=== PATIENT | male | born 1960 | race Caucasian/White ===

== ENCOUNTER 2024-01-14 03:01 | Outpatient (CLI) | payer BC, SELFPAY ==
[2024-01-14 09:59] LABS: Abs Immature Grans 0.04 10^3/uL (0.0-0.06); Absolute Basophil Count 0.06 10^3/uL (0.0-0.2); Absolute Eosinophil Count 0.24 10^3/uL (0.0-0.7); Absolute Lymphocyte Count 1.61 10^3/uL (1.2-3.4); Absolute Monocyte Count 0.94 10^3/uL (0.1-0.8); Absolute Neutrophil Count 7.12 10^3/uL (1.2-6.7); Basophils % 0.6 %; Eosinophils % 2.4 %; HCT 30.2 % (40.0-50.0); HGB 9.7 g/dL (13.5-17.5); Immature Grans % 0.4 %; Lymphocytes % 16.1 %; MCH 29.4 pg (27.0-33.0); MCHC 32.1 % (32.0-36.0); MCV 92 fL (80-95); MPV 8.5 fL (8.0-11.0); Monocytes % 9.4 %; Neutrophils % 71.1 %; Platelet Count 316 10^3/uL (130-400); RDW 13.2 % (11.8-14.1); RDW-SD 44.4 fL; WBC 10.01 10^3/uL (4.4-10.8)
[2024-01-14 10:19] LABS: ALT 20 U/L (16-63); AST 19 U/L (15-37); Albumin 3.8 g/dL (3.4-5.0); Alkaline Phosphatase 97 U/L (46-116); Anion Gap 10.7 mmol/L (3-11); BUN 19 mg/dL (7-18); Bilirubin, Total 0.32 mg/dL (0.2-1.0); CO2 23.3 mmol/L (21.0-32.0); Calcium 9.5 mg/dL (8.5-10.1); Chloride 105 mmol/L (98-107); Glucose 88 mg/dL (74-106); Magnesium 2.2 mg/dL (1.8-2.4); Sodium 139 mmol/L (136-145)
== END 2024-01-14 03:02 | disposition home or self-care (01) ==
LOC: LBO 03:02
PROVIDERS: PCP Family Medicine; Visit Provider Internal Medicine Medical Oncology
DX: C34.91 Malignant neoplasm of unspecified part of right bronchus or lung (principal)
CPT/HCPCS: 36415; 80053; 83735; 85025

== ENCOUNTER 2024-01-21 02:57 | Outpatient (CLI) | payer BC, SELFPAY ==
[2024-01-21 11:03] LABS: Abs Immature Grans 0.06 10^3/uL (0.0-0.06); Absolute Basophil Count 0.05 10^3/uL (0.0-0.2); Absolute Eosinophil Count 0.12 10^3/uL (0.0-0.7); Absolute Lymphocyte Count 1.12 10^3/uL (1.2-3.4); Absolute Monocyte Count 0.45 10^3/uL (0.1-0.8); Basophils % 0.8 %; Eosinophils % 1.9 %; HCT 27.9 % (40.0-50.0); HGB 9.1 g/dL (13.5-17.5); Lymphocytes % 17.8 %; MCH 29.5 pg (27.0-33.0); MCHC 32.6 % (32.0-36.0); MCV 91 fL (80-95); MPV 8.6 fL (8.0-11.0); Monocytes % 7.1 %; Neutrophils % 71.4 %; Platelet Count 291 10^3/uL (130-400); RBC 3.08 10^6/uL (4.36-5.78); RDW-SD 42.5 fL
[2024-01-21 11:25] LABS: ALT 25 U/L (16-63); AST 22 U/L (15-37); Albumin 3.5 g/dL (3.4-5.0); Alkaline Phosphatase 91 U/L (46-116); BUN 23 mg/dL (7-18); Bilirubin, Total 0.45 mg/dL (0.2-1.0); Calcium 9.1 mg/dL (8.5-10.1); Chloride 100 mmol/L (98-107); Glucose 99 mg/dL (74-106); Sodium 133 mmol/L (136-145); Total Protein 7.5 g/dL (6.4-8.2)
== END 2024-01-21 02:58 | disposition home or self-care (01) ==
LOC: LBO 02:59
PROVIDERS: PCP Family Medicine; Visit Provider Internal Medicine Medical Oncology
DX: C34.91 Malignant neoplasm of unspecified part of right bronchus or lung (principal)
CPT/HCPCS: 36415; 80053; 83735; 85025

== ENCOUNTER 2024-01-28 02:27 | Outpatient (CLI) | payer BC, SELFPAY ==
[2024-01-28 08:07] LABS: Abs Immature Grans 0.04 10^3/uL (0.0-0.06); Absolute Basophil Count 0.04 10^3/uL (0.0-0.2); Absolute Eosinophil Count 0.07 10^3/uL (0.0-0.7); Absolute Monocyte Count 0.42 10^3/uL (0.1-0.8); Absolute Neutrophil Count 3.73 10^3/uL (1.2-6.7); Basophils % 0.8 %; Eosinophils % 1.4 %; HGB 8.7 g/dL (13.5-17.5); Immature Grans % 0.8 %; MCHC 32.2 % (32.0-36.0); MCV 93 fL (80-95); MPV 8.5 fL (8.0-11.0); Monocytes % 8.4 %; Neutrophils % 74.6 %; Platelet Count 294 10^3/uL (130-400); RDW 13.3 % (11.8-14.1); RDW-SD 44.8 fL
[2024-01-28 08:24] LABS: Diff Comment Diff Reviewed; RBC Morphology Normal
[2024-01-28 08:49] LABS: ALT 22 U/L (16-63); AST 19 U/L (15-37); Albumin 3.4 g/dL (3.4-5.0); Alkaline Phosphatase 90 U/L (46-116); Anion Gap 10.2 mmol/L (3-11); BUN 22 mg/dL (7-18); Bilirubin, Total 0.31 mg/dL (0.2-1.0); CO2 21.8 mmol/L (21.0-32.0); CREATININE 0.9 mg/dL (0.70-1.30); Calcium 9.3 mg/dL (8.5-10.1); Chloride 102 mmol/L (98-107); Estimated GFR 96.57 (mL/min/1.73m2); Ferritin 289 ng/mL (26-388); Folate 10.4 ng/mL (8.6-20.0); Glucose 101 mg/dL (74-106); Magnesium 2.1 mg/dL (1.8-2.4); Potassium 5.3 mmol/L (3.5-5.1); Sodium 134 mmol/L (136-145); Total Protein 7.6 g/dL (6.4-8.2); Vitamin B12 623 pg/mL (193-986)
[2024-01-28 08:54] LABS: Iron 37 ug/dL (65-175); Total Iron Binding Capacity 321 ug/dL (250-450); Transferrin Sat 12 % (20-55)
== END 2024-01-28 02:28 | disposition home or self-care (01) ==
LOC: LBO 02:27
PROVIDERS: PCP Family Medicine; Visit Provider Internal Medicine Medical Oncology
DX: D64.9 Anemia, unspecified (principal); C34.91 Malignant neoplasm of unspecified part of right bronchus or lung
CPT/HCPCS: 36415; 80053; 82607; 82728; 82746; 83540; 83550; 83735; 85025

== ENCOUNTER 2024-02-04 04:39 | Outpatient (CLI) | payer BC, SELFPAY ==
[2024-02-04 08:10] LABS: Abs Immature Grans 0.04 10^3/uL (0.0-0.06); Absolute Basophil Count 0.04 10^3/uL (0.0-0.2); Absolute Eosinophil Count 0.02 10^3/uL (0.0-0.7); Absolute Lymphocyte Count 0.51 10^3/uL (1.2-3.4); Eosinophils % 0.5 %; HCT 24.7 % (40.0-50.0); HGB 8.1 g/dL (13.5-17.5); Lymphocytes % 13.4 %; MCH 29.9 pg (27.0-33.0); MCHC 32.8 % (32.0-36.0); MCV 91 fL (80-95); MPV 8.3 fL (8.0-11.0); Monocytes % 7.9 %; Neutrophils % 76.2 %; Platelet Count 265 10^3/uL (130-400); RBC 2.71 10^6/uL (4.36-5.78); WBC 3.81 10^3/uL (4.4-10.8)
[2024-02-04 08:27] LABS: ALT 19 U/L (16-63); AST 19 U/L (15-37); Albumin 3.4 g/dL (3.4-5.0); Alkaline Phosphatase 90 U/L (46-116); Anion Gap 10.7 mmol/L (3-11); BUN 25 mg/dL (7-18); Bilirubin, Total 0.31 mg/dL (0.2-1.0); CO2 21.3 mmol/L (21.0-32.0); CREATININE 0.9 mg/dL (0.70-1.30); Calcium 9.3 mg/dL (8.5-10.1); Chloride 105 mmol/L (98-107); Estimated GFR 96.57 (mL/min/1.73m2); Glucose 100 mg/dL (74-106); Magnesium 1.9 mg/dL (1.8-2.4); Potassium 4.9 mmol/L (3.5-5.1); Sodium 137 mmol/L (136-145); Total Protein 7.4 g/dL (6.4-8.2)
== END 2024-02-04 04:40 | disposition home or self-care (01) ==
LOC: LBO 04:39
PROVIDERS: PCP Family Medicine; Visit Provider Internal Medicine Medical Oncology
DX: C34.91 Malignant neoplasm of unspecified part of right bronchus or lung (principal)
CPT/HCPCS: 36415; 80053; 83735; 85025

== ENCOUNTER 2024-02-11 02:13 | Outpatient (CLI) | payer BC, SELFPAY ==
[2024-02-11 08:04] LABS: Abs Immature Grans 0.03 10^3/uL (0.0-0.06); Absolute Basophil Count 0.02 10^3/uL (0.0-0.2); Absolute Eosinophil Count 0.05 10^3/uL (0.0-0.7); Absolute Monocyte Count 0.38 10^3/uL (0.1-0.8); Absolute Neutrophil Count 2.11 10^3/uL (1.2-6.7); Basophils % 0.6 %; Eosinophils % 1.6 %; HCT 24.4 % (40.0-50.0); HGB 8.1 g/dL (13.5-17.5); Immature Grans % 0.9 %; Lymphocytes % 18.8 %; MCH 29.7 pg (27.0-33.0); MCHC 33.2 % (32.0-36.0); MCV 89 fL (80-95); MPV 8.6 fL (8.0-11.0); Monocytes % 11.9 %; Neutrophils % 66.2 %; Platelet Count 156 10^3/uL (130-400); RBC 2.73 10^6/uL (4.36-5.78); RDW 14.9 % (11.8-14.1); RDW-SD 47.3 fL; WBC 3.19 10^3/uL (4.4-10.8)
[2024-02-11 08:17] LABS: ALT 27 U/L (16-63); AST 29 U/L (15-37); Albumin 3.4 g/dL (3.4-5.0); Alkaline Phosphatase 94 U/L (46-116); Anion Gap 11.3 mmol/L (3-11); BUN 20 mg/dL (7-18); Bilirubin, Total 0.34 mg/dL (0.2-1.0); CO2 22.7 mmol/L (21.0-32.0); CREATININE 1.1 mg/dL (0.70-1.30); Calcium 9.2 mg/dL (8.5-10.1); Chloride 100 mmol/L (98-107); Glucose 130 mg/dL (74-106); Sodium 134 mmol/L (136-145); Total Protein 7.7 g/dL (6.4-8.2)
== END 2024-02-11 02:14 | disposition home or self-care (01) ==
PROVIDERS: PCP Family Medicine; Visit Provider Internal Medicine Medical Oncology
DX: C34.91 Malignant neoplasm of unspecified part of right bronchus or lung (principal)
CPT/HCPCS: 36415; 80053; 83735; 85025

== ENCOUNTER 2024-02-13 02:13 | Outpatient (RCR) | payer BC, SELFPAY ==
[2024-02-13 11:02] VITALS: BP 93/60; PULSE 93; RESP 16; TEMP 36; O2SAT 100
[2024-02-13 11:17] VITALS: BP 106/68; PULSE 95; RESP 16; TEMP 36.8; O2SAT 100
[2024-02-13 11:30] VITALS: BP 103/65; PULSE 85; RESP 16; TEMP 36.8; O2SAT 99
[2024-02-13 12:00] VITALS: BP 126/72; PULSE 91; RESP 16; TEMP 36.6; O2SAT 99
[2024-02-13 12:50] VITALS: BP 108/70; PULSE 98; RESP 16; TEMP 36.6; O2SAT 100
== END 2024-03-04 23:59 | disposition home or self-care (01) ==
LOC: INF 02:13
PROVIDERS: PCP Family Medicine; Visit Provider Internal Medicine Medical Oncology
DX: D64.9 Anemia, unspecified (principal)
CPT/HCPCS: 36415; 36430; 86850; 86900; 86901; 86920; P9016

== ENCOUNTER 2024-02-18 02:32 | Outpatient (CLI) | payer BC, SELFPAY ==
[2024-02-18 08:07] LABS: Abs Immature Grans 0.04 10^3/uL (0.0-0.06); Absolute Basophil Count 0.02 10^3/uL (0.0-0.2); Absolute Eosinophil Count 0.02 10^3/uL (0.0-0.7); Absolute Lymphocyte Count 0.38 10^3/uL (1.2-3.4); Absolute Monocyte Count 0.23 10^3/uL (0.1-0.8); Absolute Neutrophil Count 2.35 10^3/uL (1.2-6.7); Basophils % 0.7 %; Eosinophils % 0.7 %; HCT 21.3 % (40.0-50.0); HGB 7.2 g/dL (13.5-17.5); Immature Grans % 1.3 %; Lymphocytes % 12.5 %; MCH 30.8 pg (27.0-33.0); MCHC 33.8 % (32.0-36.0); MCV 91 fL (80-95); MPV 9.1 fL (8.0-11.0); Monocytes % 7.6 %; Neutrophils % 77.2 %; Platelet Count 166 10^3/uL (130-400); RBC 2.34 10^6/uL (4.36-5.78); RDW 15.3 % (11.8-14.1); RDW-SD 49.1 fL; WBC 3.04 10^3/uL (4.4-10.8)
[2024-02-18 08:22] LABS: ALT 18 U/L (16-63); AST 20 U/L (15-37); Albumin 3.1 g/dL (3.4-5.0); Alkaline Phosphatase 98 U/L (46-116); Anion Gap 11.7 mmol/L (3-11); BUN 12 mg/dL (7-18); Bilirubin, Total 0.34 mg/dL (0.2-1.0); CO2 22.3 mmol/L (21.0-32.0); Calcium 9.2 mg/dL (8.5-10.1); Chloride 103 mmol/L (98-107); Glucose 103 mg/dL (74-106); Magnesium 1.8 mg/dL (1.8-2.4); Potassium 4.2 mmol/L (3.5-5.1); Sodium 137 mmol/L (136-145); Total Protein 7.2 g/dL (6.4-8.2)
== END 2024-02-18 02:33 | disposition home or self-care (01) ==
LOC: LBO 02:32
PROVIDERS: PCP Family Medicine; Visit Provider Internal Medicine Medical Oncology
DX: C34.91 Malignant neoplasm of unspecified part of right bronchus or lung (principal)
CPT/HCPCS: 36415; 80053; 83735; 85025

== ENCOUNTER 2024-02-26 13:47 | Outpatient (CLI) | payer BC, SELFPAY ==
[2024-02-26 08:28] LABS: Abs Immature Grans 0.02 10^3/uL (0.0-0.06); Absolute Basophil Count 0.01 10^3/uL (0.0-0.2); Absolute Eosinophil Count 0.01 10^3/uL (0.0-0.7); Absolute Lymphocyte Count 0.32 10^3/uL (1.2-3.4); Absolute Monocyte Count 0.27 10^3/uL (0.1-0.8); Absolute Neutrophil Count 1.42 10^3/uL (1.2-6.7); Basophils % 0.5 %; Eosinophils % 0.5 %; HCT 21.8 % (40.0-50.0); HGB 7.2 g/dL (13.5-17.5); Lymphocytes % 15.6 %; MCH 30.8 pg (27.0-33.0); MCV 93 fL (80-95); Monocytes % 13.2 %; Neutrophils % 69.2 %; Platelet Count 214 10^3/uL (130-400); RBC 2.34 10^6/uL (4.36-5.78); RDW 16.3 % (11.8-14.1); RDW-SD 51.5 fL; WBC 2.05 10^3/uL (4.4-10.8)
[2024-02-26 08:44] LABS: ALT 15 U/L (16-63); AST 19 U/L (15-37); Albumin 3.1 g/dL (3.4-5.0); Alkaline Phosphatase 104 U/L (46-116); Anion Gap 11.6 mmol/L (3-11); BUN 10 mg/dL (7-18); Bilirubin, Total 0.41 mg/dL (0.2-1.0); CO2 24.4 mmol/L (21.0-32.0); Calcium 9.2 mg/dL (8.5-10.1); Chloride 102 mmol/L (98-107); Glucose 104 mg/dL (74-106); Magnesium 1.9 mg/dL (1.8-2.4); Potassium 3.8 mmol/L (3.5-5.1); Sodium 138 mmol/L (136-145); Total Protein 7.4 g/dL (6.4-8.2)
== END 2024-02-26 13:48 | disposition home or self-care (01) ==
LOC: LBO 13:48
PROVIDERS: PCP Family Medicine; Visit Provider Internal Medicine Medical Oncology
DX: C34.91 Malignant neoplasm of unspecified part of right bronchus or lung (principal)
CPT/HCPCS: 36415; 80053; 83735; 85025

== ENCOUNTER 2024-03-10 11:05 | Outpatient (CLI) | payer BC, SELFPAY ==
[2024-03-10 09:49] LABS: Abs Immature Grans 0.05 10^3/uL (0.0-0.06); Absolute Basophil Count 0.06 10^3/uL (0.0-0.2); Absolute Eosinophil Count 0.15 10^3/uL (0.0-0.7); Absolute Lymphocyte Count 0.74 10^3/uL (1.2-3.4); Absolute Neutrophil Count 5.07 10^3/uL (1.2-6.7); Basophils % 0.8 %; Eosinophils % 2.1 %; HCT 27.9 % (40.0-50.0); HGB 8.7 g/dL (13.5-17.5); Immature Grans % 0.7 %; Lymphocytes % 10.5 %; MCH 29.5 pg (27.0-33.0); MCHC 31.2 % (32.0-36.0); MCV 95 fL (80-95); MPV 8.5 fL (8.0-11.0); Monocytes % 14.1 %; Neutrophils % 71.8 %; Platelet Count 322 10^3/uL (130-400); RBC 2.95 10^6/uL (4.36-5.78); RDW 17.8 % (11.8-14.1); RDW-SD 61.8 fL; WBC 7.07 10^3/uL (4.4-10.8)
[2024-03-10 10:05] LABS: ALT 16 U/L (16-63); AST 23 U/L (15-37); Albumin 3.6 g/dL (3.4-5.0); Alkaline Phosphatase 128 U/L (46-116); Anion Gap 9.6 mmol/L (3-11); BUN 9 mg/dL (7-18); CO2 24.4 mmol/L (21.0-32.0); CREATININE 1.1 mg/dL (0.70-1.30); Calcium 10.1 mg/dL (8.5-10.1); Chloride 104 mmol/L (98-107); Glucose 116 mg/dL (74-106); Magnesium 2.1 mg/dL (1.8-2.4); Potassium 4.2 mmol/L (3.5-5.1); Sodium 138 mmol/L (136-145); Total Protein 8.3 g/dL (6.4-8.2)
== END 2024-03-10 11:06 | disposition home or self-care (01) ==
LOC: LBO 11:05
PROVIDERS: PCP Family Medicine; Visit Provider Internal Medicine Medical Oncology
DX: C34.91 Malignant neoplasm of unspecified part of right bronchus or lung (principal)
CPT/HCPCS: 36415; 80053; 83735; 85025

== ENCOUNTER 2024-04-07 01:16 | Outpatient (CLI) | payer BC, SELFPAY ==
[2024-04-07 12:01] LABS: Abs Immature Grans 0.03 10^3/uL (0.0-0.06); Absolute Basophil Count 0.05 10^3/uL (0.0-0.2); Absolute Lymphocyte Count 0.69 10^3/uL (1.2-3.4); Absolute Monocyte Count 0.77 10^3/uL (0.1-0.8); Absolute Neutrophil Count 5.28 10^3/uL (1.2-6.7); Basophils % 0.7 %; Eosinophils % 5.5 %; HCT 33.2 % (40.0-50.0); Immature Grans % 0.4 %; Lymphocytes % 9.6 %; MCH 27.3 pg (27.0-33.0); MCHC 30.1 % (32.0-36.0); MCV 91 fL (80-95); MPV 8.6 fL (8.0-11.0); Monocytes % 10.7 %; Neutrophils % 73.1 %; Platelet Count 306 10^3/uL (130-400); RBC 3.66 10^6/uL (4.36-5.78); RDW 16.2 % (11.8-14.1); RDW-SD 54.7 fL; WBC 7.22 10^3/uL (4.4-10.8)
[2024-04-07 12:25] LABS: ALT 22 U/L (16-63); AST 21 U/L (15-37); Albumin 3.7 g/dL (3.4-5.0); Alkaline Phosphatase 104 U/L (46-116); Anion Gap 8.2 mmol/L (3-11); BUN 17 mg/dL (7-18); Bilirubin, Total 0.21 mg/dL (0.2-1.0); CO2 25.8 mmol/L (21.0-32.0); Calcium 9.5 mg/dL (8.5-10.1); Chloride 107 mmol/L (98-107); FREE T4 0.88 ng/dL (0.76-1.46); Glucose 79 mg/dL (74-106); Magnesium 1.9 mg/dL (1.8-2.4); Potassium 4.1 mmol/L (3.5-5.1); Sodium 141 mmol/L (136-145); TSH 1.75 uIU/mL (0.36-3.74); Total Protein 7.8 g/dL (6.4-8.2)
== END 2024-04-07 01:17 | disposition home or self-care (01) ==
PROVIDERS: PCP Family Medicine; Visit Provider Internal Medicine Medical Oncology
DX: C34.91 Malignant neoplasm of unspecified part of right bronchus or lung (principal); Z79.899 Other long term (current) drug therapy
CPT/HCPCS: 36415; 80053; 83735; 84439; 84443; 85025

== ENCOUNTER 2024-05-06 12:16 | Outpatient (CLI) | payer BC, SELFPAY ==
[2024-05-06 10:22] LABS: Abs Immature Grans 0.03 10^3/uL (0.0-0.06); Absolute Basophil Count 0.04 10^3/uL (0.0-0.2); Absolute Eosinophil Count 0.25 10^3/uL (0.0-0.7); Absolute Lymphocyte Count 0.83 10^3/uL (1.2-3.4); Absolute Monocyte Count 0.94 10^3/uL (0.1-0.8); Absolute Neutrophil Count 4.42 10^3/uL (1.2-6.7); Basophils % 0.6 %; Eosinophils % 3.8 %; HCT 40.2 % (40.0-50.0); HGB 12.3 g/dL (13.5-17.5); Immature Grans % 0.5 %; Lymphocytes % 12.7 %; MCH 27.2 pg (27.0-33.0); MCHC 30.6 % (32.0-36.0); MCV 89 fL (80-95); MPV 8.4 fL (8.0-11.0); Monocytes % 14.4 %; Platelet Count 266 10^3/uL (130-400); RBC 4.53 10^6/uL (4.36-5.78); RDW 15.4 % (11.8-14.1); WBC 6.51 10^3/uL (4.4-10.8)
[2024-05-06 10:59] LABS: ALT 26 U/L (16-63); AST 25 U/L (15-37); Albumin 4.2 g/dL (3.4-5.0); Alkaline Phosphatase 104 U/L (46-116); Anion Gap 9.2 mmol/L (3-11); BUN 15 mg/dL (7-18); Bilirubin, Total 0.27 mg/dL (0.2-1.0); CO2 27.8 mmol/L (21.0-32.0); Calcium 10.1 mg/dL (8.5-10.1); Chloride 104 mmol/L (98-107); Glucose 76 mg/dL (74-106); Magnesium 2.2 mg/dL (1.8-2.4); Potassium 5.3 mmol/L (3.5-5.1); Sodium 141 mmol/L (136-145); TSH 1.32 uIU/mL (0.36-3.74); Total Protein 8.1 g/dL (6.4-8.2)
[2024-05-06 18:40] LABS: T4, Free 1.1 ng/dL (0.8-2.2)
== END 2024-05-06 12:17 | disposition home or self-care (01) ==
LOC: LBO 12:16
PROVIDERS: PCP Family Medicine; Visit Provider Internal Medicine Medical Oncology
DX: C34.91 Malignant neoplasm of unspecified part of right bronchus or lung (principal); Z79.899 Other long term (current) drug therapy
CPT/HCPCS: 36415; 80053; 83735; 84439; 84443; 85025

== ENCOUNTER 2024-06-02 01:43 | Outpatient (CLI) | payer BC, SELFPAY ==
[2024-06-02 09:41] LABS: Abs Immature Grans 0.01 10^3/uL (0.0-0.06); Absolute Basophil Count 0.04 10^3/uL (0.0-0.2); Absolute Eosinophil Count 0.23 10^3/uL (0.0-0.7); Absolute Monocyte Count 0.62 10^3/uL (0.1-0.8); Absolute Neutrophil Count 4.42 10^3/uL (1.2-6.7); Basophils % 0.6 %; Eosinophils % 3.7 %; HCT 39.5 % (40.0-50.0); HGB 12.5 g/dL (13.5-17.5); Immature Grans % 0.2 %; Lymphocytes % 14.5 %; MCH 27.4 pg (27.0-33.0); MCHC 31.6 % (32.0-36.0); MCV 87 fL (80-95); MPV 8.5 fL (8.0-11.0); Platelet Count 241 10^3/uL (130-400); RBC 4.56 10^6/uL (4.36-5.78); RDW-SD 47.7 fL; WBC 6.22 10^3/uL (4.4-10.8)
[2024-06-02 10:07] LABS: ALT 30 U/L (16-63); AST 25 U/L (15-37); Alkaline Phosphatase 97 U/L (46-116); BUN 18 mg/dL (7-18); Bilirubin, Total 0.3 mg/dL (0.2-1.0); CREATININE 0.9 mg/dL (0.70-1.30); Calcium 9.8 mg/dL (8.5-10.1); Chloride 103 mmol/L (98-107); Estimated GFR 96.57 (mL/min/1.73m2); FREE T4 1.11 ng/dL (0.76-1.46); Glucose 124 mg/dL (74-106); Potassium 4.4 mmol/L (3.5-5.1); Sodium 140 mmol/L (136-145); TSH 0.23 uIU/mL (0.36-3.74); Total Protein 7.9 g/dL (6.4-8.2)
== END 2024-06-02 01:44 | disposition home or self-care (01) ==
LOC: LBO 01:43
PROVIDERS: PCP Family Medicine; Visit Provider Internal Medicine Medical Oncology
DX: C34.91 Malignant neoplasm of unspecified part of right bronchus or lung (principal); Z79.899 Other long term (current) drug therapy
CPT/HCPCS: 36415; 80053; 83735; 84439; 84443; 85025

== ENCOUNTER 2024-06-30 00:34 | Outpatient (CLI) | payer BC, SELFPAY ==
[2024-06-30 08:21] LABS: Abs Immature Grans 0.02 10^3/uL (0.0-0.06); Absolute Basophil Count 0.05 10^3/uL (0.0-0.2); Absolute Eosinophil Count 0.31 10^3/uL (0.0-0.7); Absolute Lymphocyte Count 1.09 10^3/uL (1.2-3.4); Absolute Monocyte Count 0.87 10^3/uL (0.1-0.8); Absolute Neutrophil Count 4.36 10^3/uL (1.2-6.7); Basophils % 0.7 %; Eosinophils % 4.6 %; HCT 39.2 % (40.0-50.0); HGB 12.4 g/dL (13.5-17.5); Immature Grans % 0.3 %; Lymphocytes % 16.3 %; MCH 27.3 pg (27.0-33.0); MCHC 31.6 % (32.0-36.0); MCV 86 fL (80-95); MPV 8.8 fL (8.0-11.0); Neutrophils % 65.1 %; Platelet Count 249 10^3/uL (130-400); RBC 4.54 10^6/uL (4.36-5.78); RDW 14.9 % (11.8-14.1); RDW-SD 47.3 fL
[2024-06-30 08:45] LABS: ALT 27 U/L (16-63); AST 23 U/L (15-37); Albumin 3.9 g/dL (3.4-5.0); Alkaline Phosphatase 90 U/L (46-116); Anion Gap 9.2 mmol/L (3-11); BUN 19 mg/dL (7-18); Bilirubin, Total 0.3 mg/dL (0.2-1.0); CO2 26.8 mmol/L (21.0-32.0); Calcium 9.7 mg/dL (8.5-10.1); Chloride 104 mmol/L (98-107); Glucose 81 mg/dL (74-106); Potassium 4.4 mmol/L (3.5-5.1); Sodium 140 mmol/L (136-145); TSH 0.33 uIU/mL (0.36-3.74); Total Protein 7.7 g/dL (6.4-8.2)
== END 2024-06-30 00:35 | disposition home or self-care (01) ==
LOC: LBO 00:35
PROVIDERS: PCP Family Medicine; Visit Provider Internal Medicine Medical Oncology
DX: C34.91 Malignant neoplasm of unspecified part of right bronchus or lung (principal); Z79.899 Other long term (current) drug therapy
CPT/HCPCS: 36415; 80053; 83735; 84439; 84443; 85025

== ENCOUNTER 2024-07-29 10:42 | Outpatient (CLI) | payer BC, SELFPAY ==
[2024-07-29 09:56] LABS: Abs Immature Grans 0.03 10^3/uL (0.0-0.06); Absolute Basophil Count 0.05 10^3/uL (0.0-0.2); Absolute Eosinophil Count 0.43 10^3/uL (0.0-0.7); Absolute Lymphocyte Count 0.92 10^3/uL (1.2-3.4); Absolute Neutrophil Count 3.93 10^3/uL (1.2-6.7); Basophils % 0.8 %; Eosinophils % 7.1 %; HCT 37.4 % (40.0-50.0); HGB 12.2 g/dL (13.5-17.5); Immature Grans % 0.5 %; Lymphocytes % 15.2 %; MCH 27.8 pg (27.0-33.0); MCHC 32.6 % (32.0-36.0); MCV 85 fL (80-95); MPV 8.7 fL (8.0-11.0); Monocytes % 11.6 %; Neutrophils % 64.8 %; Platelet Count 254 10^3/uL (130-400); RBC 4.39 10^6/uL (4.36-5.78); RDW 14.7 % (11.8-14.1); RDW-SD 45.7 fL; WBC 6.06 10^3/uL (4.4-10.8)
[2024-07-29 10:27] LABS: ALT 23 U/L (16-63); AST 25 U/L (15-37); Albumin 4.1 g/dL (3.4-5.0); Alkaline Phosphatase 92 U/L (46-116); Anion Gap 6.6 mmol/L (3-11); BUN 16 mg/dL (7-18); Bilirubin, Total 0.3 mg/dL (0.2-1.0); CO2 27.4 mmol/L (21.0-32.0); CREATININE 0.9 mg/dL (0.70-1.30); Calcium 9.5 mg/dL (8.5-10.1); Chloride 104 mmol/L (98-107); Estimated GFR 96.57 (mL/min/1.73m2); FREE T4 0.79 ng/dL (0.76-1.46); Glucose 91 mg/dL (74-106); Potassium 4.4 mmol/L (3.5-5.1); Sodium 138 mmol/L (136-145); TSH 2.78 uIU/mL (0.36-3.74); Total Protein 7.8 g/dL (6.4-8.2)
== END 2024-07-29 10:43 | disposition home or self-care (01) ==
LOC: LBO 10:42
PROVIDERS: PCP Family Medicine; Visit Provider Internal Medicine Medical Oncology
DX: C34.91 Malignant neoplasm of unspecified part of right bronchus or lung (principal); Z79.899 Other long term (current) drug therapy
CPT/HCPCS: 36415; 80053; 83735; 84439; 84443; 85025

== ENCOUNTER 2024-08-25 10:39 | Outpatient (CLI) | payer BC, SELFPAY ==
[2024-08-25 08:13] LABS: Abs Immature Grans 0.02 10^3/uL (0.0-0.06); Absolute Basophil Count 0.03 10^3/uL (0.0-0.2); Absolute Eosinophil Count 0.22 10^3/uL (0.0-0.7); Absolute Lymphocyte Count 0.73 10^3/uL (1.2-3.4); Absolute Monocyte Count 0.63 10^3/uL (0.1-0.8); Absolute Neutrophil Count 4.12 10^3/uL (1.2-6.7); Basophils % 0.5 %; Eosinophils % 3.8 %; HCT 35.1 % (40.0-50.0); HGB 11.4 g/dL (13.5-17.5); Immature Grans % 0.3 %; Lymphocytes % 12.7 %; MCH 28.2 pg (27.0-33.0); MCHC 32.5 % (32.0-36.0); MCV 87 fL (80-95); MPV 8.5 fL (8.0-11.0); Neutrophils % 71.7 %; Platelet Count 230 10^3/uL (130-400); RBC 4.04 10^6/uL (4.36-5.78); RDW 13.8 % (11.8-14.1); RDW-SD 43.5 fL; WBC 5.75 10^3/uL (4.4-10.8)
[2024-08-25 08:29] LABS: ALT 25 U/L (16-63); AST 22 U/L (15-37); Albumin 3.8 g/dL (3.4-5.0); Alkaline Phosphatase 84 U/L (46-116); Anion Gap 10.6 mmol/L (3-11); BUN 20 mg/dL (7-18); Bilirubin, Total 0.3 mg/dL (0.2-1.0); CO2 25.4 mmol/L (21.0-32.0); CREATININE 0.8 mg/dL (0.70-1.30); Calcium 9.3 mg/dL (8.5-10.1); Chloride 105 mmol/L (98-107); Estimated GFR 100.06 (mL/min/1.73m2); Glucose 119 mg/dL (74-106); Potassium 4.6 mmol/L (3.5-5.1); Sodium 141 mmol/L (136-145); Total Protein 7.5 g/dL (6.4-8.2)
[2024-08-25 08:39] LABS: FREE T4 0.71 ng/dL (0.76-1.46); TSH 4.69 uIU/mL (0.36-3.74)
== END 2024-08-25 10:40 | disposition home or self-care (01) ==
LOC: LBO 10:40
PROVIDERS: Nurse Practitioner Family; PCP Family Medicine; Visit Provider Internal Medicine Medical Oncology
DX: C34.91 Malignant neoplasm of unspecified part of right bronchus or lung (principal); Z79.899 Other long term (current) drug therapy
CPT/HCPCS: 36415; 80053; 83735; 84439; 84443; 85025

== ENCOUNTER 2024-09-22 01:34 | Outpatient (CLI) | payer BC, SELFPAY ==
[2024-09-22 12:07] LABS: Abs Immature Grans 0.02 10^3/uL (0.0-0.06); HCT 37.1 % (40.0-50.0); HGB 12.3 g/dL (13.5-17.5); Immature Grans % 0.3 %; MCH 28.9 pg (27.0-33.0); MCHC 33.2 % (32.0-36.0); MCV 87 fL (80-95); MPV 8.6 fL (8.0-11.0); Platelet Count 249 10^3/uL (130-400); RBC 4.26 10^6/uL (4.36-5.78); RDW 13.2 % (11.8-14.1); RDW-SD 41.6 fL; WBC 6.09 10^3/uL (4.4-10.8)
[2024-09-22 12:20] LABS: ALT 24 U/L (16-63); AST 21 U/L (15-37); Albumin 4.1 g/dL (3.4-5.0); Alkaline Phosphatase 87 U/L (46-116); Anion Gap 7.1 mmol/L (3-11); BUN 13 mg/dL (7-18); Bilirubin, Total 0.3 mg/dL (0.2-1.0); CO2 28.9 mmol/L (21.0-32.0); Calcium 9.4 mg/dL (8.5-10.1); Chloride 102 mmol/L (98-107); Estimated GFR 100.06 (mL/min/1.73m2); Glucose 78 mg/dL (74-106); Magnesium 2.2 mg/dL (1.8-2.4); Potassium 4.0 mmol/L (3.5-5.1); Sodium 138 mmol/L (136-145); Total Protein 7.5 g/dL (6.4-8.2)
[2024-09-22 12:30] LABS: TSH 4.83 uIU/mL (0.36-3.74)
== END 2024-09-22 01:35 | disposition home or self-care (01) ==
LOC: LBO 01:35
PROVIDERS: Nurse Practitioner Family; PCP Family Medicine; Visit Provider Internal Medicine Medical Oncology
DX: C34.91 Malignant neoplasm of unspecified part of right bronchus or lung (principal); Z79.899 Other long term (current) drug therapy
CPT/HCPCS: 36415; 80053; 83735; 84439; 84443; 85025

== ENCOUNTER 2024-10-20 04:09 | Outpatient (CLI) | payer BC, SELFPAY ==
[2024-10-20 07:41] LABS: Abs Immature Grans 0.02 10^3/uL (0.0-0.06); HCT 39.3 % (40.0-50.0); HGB 12.7 g/dL (13.5-17.5); Immature Grans % 0.3 %; MCH 28.5 pg (27.0-33.0); MCHC 32.3 % (32.0-36.0); MCV 88 fL (80-95); MPV 8.5 fL (8.0-11.0); Platelet Count 270 10^3/uL (130-400); RBC 4.46 10^6/uL (4.36-5.78); RDW 13.2 % (11.8-14.1); RDW-SD 42.5 fL; WBC 6.96 10^3/uL (4.4-10.8)
[2024-10-20 07:57] LABS: ALT 23 U/L (16-63); AST 24 U/L (15-37); Albumin 4.2 g/dL (3.4-5.0); Alkaline Phosphatase 90 U/L (46-116); Anion Gap 8.8 mmol/L (3-11); BUN 16 mg/dL (7-18); Bilirubin, Total 0.4 mg/dL (0.2-1.0); CO2 26.2 mmol/L (21.0-32.0); Calcium 9.6 mg/dL (8.5-10.1); Chloride 104 mmol/L (98-107); Estimated GFR 75.90 (mL/min/1.73m2); Glucose 141 mg/dL (74-106); Magnesium 2.1 mg/dL (1.8-2.4); Potassium 4.5 mmol/L (3.5-5.1); Sodium 139 mmol/L (136-145); Total Protein 7.9 g/dL (6.4-8.2)
[2024-10-20 10:01] LABS: TSH 16.19 uIU/mL (0.36-3.74)
== END 2024-10-20 04:10 | disposition home or self-care (01) ==
PROVIDERS: Internal Medicine Medical Oncology; PCP Family Medicine; Visit Provider Nurse Practitioner Family
DX: C34.91 Malignant neoplasm of unspecified part of right bronchus or lung (principal); Z79.899 Other long term (current) drug therapy
CPT/HCPCS: 36415; 80053; 83735; 84439; 84443; 85025

== ENCOUNTER 2024-11-17 01:50 | Outpatient (CLI) | payer BC, SELFPAY ==
[2024-11-17 09:46] LABS: Abs Immature Grans 0.02 10^3/uL (0.0-0.06); HCT 37.7 % (40.0-50.0); HGB 12.4 g/dL (13.5-17.5); Immature Grans % 0.3 %; MCH 29.3 pg (27.0-33.0); MCHC 32.9 % (32.0-36.0); MCV 89 fL (80-95); MPV 8.6 fL (8.0-11.0); Platelet Count 263 10^3/uL (130-400); RBC 4.23 10^6/uL (4.36-5.78); RDW 13.6 % (11.8-14.1); RDW-SD 44.4 fL; WBC 6.62 10^3/uL (4.4-10.8)
[2024-11-17 10:25] LABS: ALT 25 U/L (16-63); AST 27 U/L (15-37); Albumin 4.2 g/dL (3.4-5.0); Alkaline Phosphatase 89 U/L (46-116); Anion Gap 8.6 mmol/L (3-11); BUN 15 mg/dL (7-18); Bilirubin, Total 0.4 mg/dL (0.2-1.0); CO2 25.4 mmol/L (21.0-32.0); Calcium 9.7 mg/dL (8.5-10.1); Chloride 104 mmol/L (98-107); Estimated GFR 85.10 (mL/min/1.73m2); Glucose 111 mg/dL (74-106); Magnesium 2.1 mg/dL (1.8-2.4); Potassium 5.1 mmol/L (3.5-5.1); Sodium 138 mmol/L (136-145); TSH 41.15 uIU/mL (0.36-3.74); Total Protein 7.8 g/dL (6.4-8.2)
== END 2024-11-17 01:51 | disposition home or self-care (01) ==
LOC: LBO 01:51
PROVIDERS: PCP Family Medicine; Visit Provider Internal Medicine Medical Oncology
DX: C34.91 Malignant neoplasm of unspecified part of right bronchus or lung (principal); Z79.899 Other long term (current) drug therapy
CPT/HCPCS: 36415; 80053; 83735; 84439; 84443; 85025

== ENCOUNTER 2024-12-15 03:23 | Outpatient (CLI) | payer BC, SELFPAY ==
[2024-12-15 07:51] LABS: Abs Immature Grans 0.02 10^3/uL (0.0-0.06); HCT 37.0 % (40.0-50.0); HGB 12.1 g/dL (13.5-17.5); Immature Grans % 0.3 %; MCH 29.1 pg (27.0-33.0); MCHC 32.7 % (32.0-36.0); MCV 89 fL (80-95); MPV 8.7 fL (8.0-11.0); Platelet Count 225 10^3/uL (130-400); RBC 4.16 10^6/uL (4.36-5.78); RDW 13.5 % (11.8-14.1); RDW-SD 44.1 fL; WBC 6.28 10^3/uL (4.4-10.8)
[2024-12-15 08:13] LABS: ALT 24 U/L (16-63); AST 27 U/L (15-37); Albumin 4.1 g/dL (3.4-5.0); Alkaline Phosphatase 91 U/L (46-116); Anion Gap 9.4 mmol/L (3-11); BUN 12 mg/dL (7-18); Bilirubin, Total 0.4 mg/dL (0.2-1.0); CO2 26.6 mmol/L (21.0-32.0); Calcium 9.2 mg/dL (8.5-10.1); Chloride 104 mmol/L (98-107); Estimated GFR 100.06 (mL/min/1.73m2); Glucose 103 mg/dL (74-106); Magnesium 2.1 mg/dL (1.8-2.4); Potassium 4.0 mmol/L (3.5-5.1); Sodium 140 mmol/L (136-145); TSH 36.10 uIU/mL (0.36-3.74); Total Protein 7.7 g/dL (6.4-8.2)
== END 2024-12-15 03:24 | disposition home or self-care (01) ==
LOC: LBO 03:23
PROVIDERS: PCP Family Medicine; Visit Provider Internal Medicine Medical Oncology
DX: C34.91 Malignant neoplasm of unspecified part of right bronchus or lung (principal); Z79.899 Other long term (current) drug therapy
CPT/HCPCS: 36415; 80053; 83735; 84439; 84443; 85025

== ENCOUNTER → 2025-01-05 02:05 | Outpatient (CLI) | payer BC, SELFPAY ==
[2025-01-05] MEDS: Normal Saline - Diluent 50 ML VIAL IJ (08:43)
[2025-01-05] MEDS: Normal Saline Flush 10 ML SYR IVP (08:44)
[2025-01-05] MEDS: Omnipaque 350 MG/ML 100 ML BTL IJ (08:48)
--- NOTE | 2025-01-05 08:56 | DI.CT_ITS ---
Exam(s) CT CHEST W EXAM: CT CHEST W CLINICAL HISTORY: NSCLC RT LUNG, C34.91, EVAL TREATMENT RESPONSE TECHNIQUE: Imaging Protocol: Axial computed tomography images with coronal and sagittal reformatted images were created and reviewed. Computer aided detection (CAD) was utilized. CONTRAST MATERIAL: Intravenous: Omnipaque 350Contrast volume:70 mL. COMPARISON: CT CT RAD ONC CHEST INTER from 12/26/[address] CHEST W from 03/03/[address] CHEST W from 07/21/[address] CHEST W from 10/13/2024 FINDINGS: Tracheobronchial tree: Patent where visualized. No evidence of bronchiectasis. Pulmonary parenchyma: There are centrilobular emphysematous changes present. The opacity in the posterior aspect of the right upper lobe has shown very slight decrease in size compared to the prior examination. It measures 2.8 x 0.8 cm. The scarring in the right upper lobe appears stable. No new pulmonary masses or infiltrates are present. Mediastinum and Stacy: No dominant adenopathy or fluid collection. The esophagus is unremarkable. There is unchanged shift of the mediastinum to the right. Thyroid gland: Unremarkable. Pleura: No effusion or pneumothorax. Heart: The heart is not dilated. Coronary artery calcifications are present. No pericardial effusion. Aorta: Thoracic aorta non-dilated. There is no evidence of dissection. Atherosclerotic calcification is present. Pulmonary arteries: Due to the timing of the bolus, peripheral pulmonary artery evaluation is limited. No large central pulmonary embolism is present. Upper abdomen: There is a mildly heterogeneous 1.9 x 1.6 cm suspicious nodular area in the lateral aspect of the midpole of the right kidney (series 2, image 66). Right renal mass should be considered. Lymph nodes: Within normal limits. Bones: Within normal limits for the patient's age. Soft tissues: Unremarkable. IMPRESSION: 1. Slight interval decrease in size of the opacity in the posterior aspect of the right upper lobe. The lungs are otherwise stable. 2. Centrilobular pulmonary emphysema. 3. 1.9 x 1.6 cm suspicious nodule in the right kidney. It is incompletely evaluated on this examination. A CT scan or MRI of the kidneys is recommended for further evaluation. A renal neoplasm should be considered. Unexpected findings RADIATION DOSE DELIVERED: 159.26mGy.cm Total DLP DATA REPOSITORY: All CT scans at this facility are submitted to the National Radiology Data Registry (NRDR) Dose Index Registry (DIR) with the [employer] ([employer]). RADIATION OPTIMIZATION: All CT scans at this facility use at least one of these dose optimization techniques: automated exposure control; mA and/or kV adjustment per patient size (includes targeted exams where dose is matched to clinical indication); or iterative reconstruction.
== END ==
LOC: DI 02:05
PROVIDERS: PCP Family Medicine; Visit Provider Nurse Practitioner Family
DX: C34.91 Malignant neoplasm of unspecified part of right bronchus or lung (principal); J43.2 Centrilobular emphysema
CPT/HCPCS: 71260; J3490

== ENCOUNTER 2025-01-12 03:29 | Outpatient (CLI) | payer BC, SELFPAY ==
[2025-01-12 08:06] LABS: TSH 36.81 uIU/mL (0.36-3.74)
[2025-01-12 08:34] LABS: Abs Immature Grans 0.02 10^3/uL (0.0-0.06); HCT 38.5 % (40.0-50.0); HGB 12.6 g/dL (13.5-17.5); Immature Grans % 0.3 %; MCH 29.4 pg (27.0-33.0); MCHC 32.7 % (32.0-36.0); MCV 90 fL (80-95); MPV 9.2 fL (8.0-11.0); Platelet Count 262 10^3/uL (130-400); RBC 4.28 10^6/uL (4.36-5.78); RDW 13.4 % (11.8-14.1); RDW-SD 43.8 fL; WBC 6.72 10^3/uL (4.4-10.8)
[2025-01-12 08:44] LABS: ALT 21 U/L (16-63); AST 23 U/L (15-37); Albumin 3.9 g/dL (3.4-5.0); Alkaline Phosphatase 81 U/L (46-116); Anion Gap 11.3 mmol/L (3-11); BUN 21 mg/dL (7-18); Bilirubin, Total 0.4 mg/dL (0.2-1.0); CO2 24.7 mmol/L (21.0-32.0); Calcium 8.9 mg/dL (8.5-10.1); Chloride 102 mmol/L (98-107); Glucose 100 mg/dL (74-106); Magnesium 2.2 mg/dL (1.8-2.4); Potassium 4.6 mmol/L (3.5-5.1); Sodium 138 mmol/L (136-145); Total Protein 7.7 g/dL (6.4-8.2)
== END 2025-01-12 03:30 | disposition home or self-care (01) ==
LOC: LBO 03:29
PROVIDERS: Nurse Practitioner Family; PCP Family Medicine; Visit Provider Internal Medicine Medical Oncology
DX: C34.91 Malignant neoplasm of unspecified part of right bronchus or lung (principal); Z79.899 Other long term (current) drug therapy
CPT/HCPCS: 36415; 80053; 83735; 84439; 84443; 85025

== ENCOUNTER → 2025-01-21 02:11 | Outpatient (CLI) | payer BC, SELFPAY ==
--- NOTE | 2025-01-21 | DI.MRI_ITS ---
Exam(s) MR ABDOMEN WO/W EXAM: MR ABDOMEN WO/W CLINICAL HISTORY: NSCLC RT LUNG, C34.91, SINGLE RENAL CYST, N28.1 TECHNIQUE: Multiplanar multisequence MRI of the Abdomen was performed. CONTRAST MATERIAL: IV Contrast: 18 mL of Dotarem contrast administered. COMPARISON: CT CT CHEST W from 03/03/[address] CHEST W from 07/21/[address] CHEST W from 10/13/[address] CHEST W from 01/05/2025 FINDINGS: Lung bases: Unremarkable. Liver: Unremarkable. Pancreas: Unremarkable. Gallbladder and Bile Ducts: Unremarkable. Adrenals: Unremarkable. Kidneys: 17 millimeter cyst near the lower pole of the right kidney. 18 by 18 x 15 millimeter lesion at the lateral mid pole of the right kidney which is isoechoic to renal parenchyma on T1 and T2 weighted precontrast images. It shows arterial enhancement on postcontrast images. The lesion comes more visible on later post-contrast images with some contrast washout. The borders of appear circumscribed. Spleen: Unremarkable. Aorta: Unremarkable. Soft Tissues: Unremarkable. Bone: Unremarkable. Lymph Nodes: Unremarkable. Stomach and bowel: Unremarkable. Peritoneal cavity: Unremarkable. No evidence of ascites. IMPRESSION: 18 millimeter lesion noted at lateral mid right kidney shows postcontrast enhancement. The findings could represent metastatic versus primary tumor. DATA REPOSITORY:
[2025-01-21] MEDS: Gadoterate meglumine 20 ML VIAL IVP (12:52)
== END ==
LOC: DI 02:11
PROVIDERS: PCP Family Medicine; Visit Provider Internal Medicine Medical Oncology
DX: C34.91 Malignant neoplasm of unspecified part of right bronchus or lung (principal); N28.1 Cyst of kidney, acquired
CPT/HCPCS: 74183